=== PATIENT | male | born 1985 | race Caucasian/White ===

== ENCOUNTER 2016-06-06 19:27 | Emergency (ER) | payer SELFPAY ==
[2016-06-06] MEDS ORDERED: IBUPROFEN 600 MG TAB PO ONE ×2 (22:24→22:45)
== END 2016-06-06 22:40 | disposition home or self-care (01) ==
LOC: ER 19:31
DX: S90.31XA Contusion of right foot, initial encounter (principal); F12.10 Cannabis abuse, uncomplicated; V98.8XXA Other specified transport accidents, initial encounter; Y93.89 Activity, other specified; Y99.8 Other external cause status; Y92.89 Other specified places as the place of occurrence of the external cause
CPT/HCPCS: 73630; 99284; L3260

== ENCOUNTER 2017-03-30 20:37 | Emergency (ER) | payer SELFPAY ==
[~2017-03-30] VITALS: Ht 177.8 cm; Wt 79.4 kg
[2017-03-30 20:54] VITALS: BP 132/92
== END 2017-03-31 02:25 | disposition home or self-care (01) ==
LOC: ER 20:37
DX: M25.851 Other specified joint disorders, right hip (principal); F12.10 Cannabis abuse, uncomplicated; Z88.0 Allergy status to penicillin
CPT/HCPCS: 73502